=== PATIENT | male | born 1940 | race Caucasian/White ===

== ENCOUNTER → 2016-05-11 | Outpatient (REF) | payer MEDICARE, BC | LOC: M LAB REF 16:29 | DX: D51.9 Vitamin B12 deficiency anemia, unspecified (principal) ==

== ENCOUNTER → 2016-10-31 | Outpatient (CLI) | payer MEDICARE, BC ==
[~2016-10-31] MED LIST: B121000T PO; CYCL10TA; IBUP80TA PO; LANTINJ4; LOSA25TA8; NITR0.4S14 SL; PERC5TAB12 PO; PRAV40TA2; PRED20TA
--- NOTE | 2016-11-01 13:17 | REP ---
MRI study of the brain without contrast: History: Migraines. Neck pain. Back pain. Comparison CT study is from October 29, 2007. Technique: Axial and sagittal imaging planes are utilized for T1 and T2-weighted scans. Sequences include spin-echo, fast spin echo, FLAIR, and diffusion weighted sequences. MRI findings: No bony calvarial abnormality is seen. Craniocervical junction and upper cervical cord are normal in appearance. No intraorbital abnormality is seen. There is no MR evidence of significant paranasal sinus disease. There is no evidence of intracranial hemorrhage. Mild generalized volume loss is seen. Diffusion weighted scan show no evidence of acute ischemia or other cause of restricted diffusion. There is no evidence of intracranial mass, infarction, extra-axial fluid collection or midline shift. Minimal small vessel changes are present. Impression: No acute intracranial lesion. Generalized mild volume loss and minimal small vessel changes. Signed by Matty Jaramillo MD 11/01/2016 10:09 A
--- NOTE | 2016-11-01 13:17 | REP ---
MRI cervical spine without contrast: History: Migraines. Neck pain. Back pain. Comparison radiographs of the cervical spine are from October 29, 2007. Technique: Sagittal and axial T1 and T2-weighted scans are acquired in the usual fashion with and without fat saturation. Sequences include spin echo, turbo spin-echo, and STIR imaging sequences. MRI findings: The patient is status post ventral discectomy and fusion plating across the C6-7 disc space. 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 There is slight straightening. There is evidence of mild degenerative disc disease at C2-3, C3-4, C4-5, C5-6 and C7-T1. There is diffuse congenital central canal stenosis effacing the ventral and dorsal subarachnoid space mild in degree throughout the cervical spine. At C2-3, axial and sagittal images demonstrate mild diffuse disc bulging. There is left-sided uncovertebral spurring producing neural foraminal narrowing. At C3-4, in addition to mild developmental central canal stenosis, there is a broad-based central disc protrusion with associated discogenic spurring flattening the ventral margin of the cord. There is bilateral mild uncovertebral spurring. At C4-5, there is mild diffuse disc bulging. No other significant finding apart from developmentally small canal. At C5-6, there is a small central disc protrusion indenting the ventral margin of the cord centrally. Mild congenital central canal narrowing. At C6-7, there is evidence of surgical fusion. No recurrent or residual disc protrusion is seen. At C7-T1, there is no evidence of disc protrusion. Impression: 1. Status post C6-7 fusion. 2. 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 3. Central disc protrusions C3-4 and C5-6.4. Diffuse mild congenital central canal stenosis. Signed by Matty Jaramillo MD 11/01/2016 10:09 A
--- NOTE | 2016-11-01 13:17 | REP ---
MRI LUMBAR SPINE WITHOUT CONTRAST: HISTORY: Neck pain. Migraine. Back pain. Comparison is made with CT images from February 23, 2011. TECHNIQUE: Sagittal and axial T1 and T2-weighted scans are acquired in the usual fashion with and without fat saturation. Sequences include spin echo, turbo spin echo, and STIR imaging sequences. MRI FINDINGS: Lumbar vertebral body heights are preserved. Alignment is normal. There is no evidence of spondylolysis or spondylolisthesis. Normal caliber aorta. No extra vertebral abnormality is appreciated. Conus medullaris is normal in position and appearance at L1. There is a small benign hemangioma centrally in the L1 vertebral body. Axial and sagittal images at the L1-2 level show anterior discogenic spurring. No central canal stenosis is seen. Mild facet hypertrophy is noted. No disc herniation is seen. At L2-3 there is mild facet hypertrophy. No other abnormality. At L3-L4, there is diffuse disc bulging. Bilateral facet hypertrophy and some ligamentum flavum hypertrophy is seen. Canal size is borderline. Neural foramina are felt to be adequate. At L4-5, there is mild diffuse disc bulging. Ligamentum flavum and facet hypertrophy are seen along with developmentally short pedicles which combine to produce mild central canal stenosis at L4-5. The mid sagittal AP dimension of the thecal sac at this level is 10 mm. At L5-S1, there is broad central disc bulging effacing the ventral epidural fat but not compressing the thecal sac. Mild to moderate facet hypertrophy is seen. Neural foramina appear adequate. IMPRESSION: Some degenerative spondylosis changes. 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 Signed by Matty Jaramillo MD 11/01/2016 10:09 A
== END ==
LOC: M RAD 15:35
PROVIDERS: ATTEND Psychiatry & Neurology Neurology
DX: M54.5 Low back pain (principal); M54.2 Cervicalgia

== ENCOUNTER 2016-12-31 10:42 | Emergency (ER) | payer MEDICARE, BC ==
[~2016-12-31] VITALS: Ht 170.2 cm; Wt 75.9 kg
[2016-12-31] MEDS ORDERED: B121000T PO (11:04)
[2016-12-31] MEDS ORDERED: NITR0.4S14 SL (11:04)
[2016-12-31] MEDS ORDERED: CYCL10TA (11:04)
[2016-12-31] MEDS ORDERED: LOSA25TA8 (11:04)
[2016-12-31] MEDS ORDERED: PRAV40TA2 (11:04)
[2016-12-31] MEDS ORDERED: LANTINJ4 (11:04)
[2016-12-31] MEDS ORDERED: PRED20TA (11:04)
[2016-12-31] MEDS ORDERED: KETOROLAC 60 MG/2 ML VIAL (J1885) IM ONE (12:30)
--- NOTE | 2016-12-31 13:07 | REP ---
LUMBOSACRAL SPINE: Five views of lumbosacral spine performed. There is no compression fracture or malalignment. There is normal lumbar lordosis. There is mild to moderate spurring diffusely. There is diffuse sclerosis at the posterior facet joints. Posterior elements are intact. IMPRESSION: Diffuse degenerative changes. No fracture or dislocation. Signed by Selvin Knight MD 01/01/2017 07:53 P
[2016-12-31] MEDS ORDERED: IBUP80TA PO (13:27)
[2016-12-31] MEDS ORDERED: PERC5TAB12 PO (13:27)
[2016-12-31] MEDS ORDERED: PERCOCET 5MG/325MG TAB PO ONE (13:30)
[2016-12-31 13:37] VITALS: BP 142/78
== END 2016-12-31 13:40 | disposition home or self-care (01) ==
LOC: M ED 10:42
DX: M54.5 Low back pain (principal); E11.9 Type 2 diabetes mellitus without complications; I25.10 Atherosclerotic heart disease of native coronary artery without angina pectoris; I25.2 Old myocardial infarction; E78.5 Hyperlipidemia, unspecified; Z96.659 Presence of unspecified artificial knee joint; Z96.621 Presence of right artificial elbow joint; Z79.4 Long term (current) use of insulin; Z79.899 Other long term (current) drug therapy
CPT/HCPCS: 72110; 96372; 99282; J1885

== ENCOUNTER → 2017-09-17 | Outpatient (CLI) | payer MEDICARE, BC ==
[2017-09-17 10:34] LABS: HEMATOCRIT 39.3 % (42.0-52.0); HEMOGLOBIN 13.5 g/dl (13.5-17.5); MEAN CORPUSCULAR HEMOGLOBIN 30.9 pg (27.0-33.0); MEAN CORPUSCULAR HGB CONC 34.4 g/dl (32.0-36.5); MEAN CORPUSCULAR VOLUME 89.9 fl (80.0-96.0); PLATELET COUNT, AUTOMATED 204 10^3/uL (150-450); RED BLOOD COUNT 4.37 10^6/uL (4.30-6.10); RED CELL DISTRIBUTION WIDTH 12.2 % (11.5-14.5); WHITE BLOOD COUNT 8.5 10^3/uL (4.0-10.0)
[2017-09-17 10:57] LABS: ERYTHROCYTE SEDIMENTATION RATE 12 mm/hr (0-20)
[2017-09-17 11:19] LABS: INR 1.06; PROTHROMBIN TIME 13.9 SECONDS (12.1-14.4)
[2017-09-17 11:20] LABS: ALBUMIN/GLOBULIN RATIO 1.43 (1.00-1.93); ALKALINE PHOSPHATASE 97 U/L (45-117); ALT/SGPT 22 U/L (12-78); ANION GAP 10 MEQ/L (8-16); AST/SGOT 24 U/L (7-37); BLOOD UREA NITROGEN 28 MG/DL (7-18); CARBON DIOXIDE LEVEL 25 MEQ/L (21-32); CHLORIDE LEVEL 108 MEQ/L (98-107); CREATININE FOR GFR 1.72 MG/DL (0.70-1.30); GLOMERULAR FILTRATION RATE 41.6 (>42); GLUCOSE, FASTING 136 MG/DL (70-100); SODIUM LEVEL 143 MEQ/L (136-145); TOTAL PROTEIN 6.8 GM/DL (6.4-8.2)
== END ==
LOC: M ADMPAT 09:13
DX: M17.12 Unilateral primary osteoarthritis, left knee (principal); Z01.818 Encounter for other preprocedural examination
CPT/HCPCS: 71046

== ENCOUNTER 2017-10-07 09:26 | Inpatient (IN) | payer MEDICARE, BC ==
[2017-10-07] MEDS ORDERED: LIDOCAINE 1% MDV 20ML VIAL SQ (09:30)
[2017-10-07] MEDS: LR 1,000 ML IV ×3 (10:05→20:11)
[2017-10-07] MEDS: ACETAMINOPHEN 500 MG TAB PO (10:10)
[2017-10-07 10:22] LABS: GLUCOSE, FASTING 153 MG/DL (70-100)
[2017-10-07] MEDS ORDERED: fentaNYL 100 MCG/2 ML INJECTION (J3010) As Ordered (11:33)
[2017-10-07] MEDS ORDERED: MIDAZOLAM INJ 2 MG/2 ML VIAL (J2250) As Ordered (11:33)
[2017-10-07] MEDS: MIDAZOLAM INJ 2 MG/2 ML VIAL (J2250) IV ×2 (12:14→13:22)
[2017-10-07] MEDS: fentaNYL 100 MCG/2 ML INJECTION (J3010) IV ×4 (12:15→13:21)
[2017-10-07] MEDS ORDERED: PROPOFOL 200 MG/20 ML VIAL As Ordered (13:15)
[2017-10-07] MEDS ORDERED: ePHEDrine SULFATE 25 MG/5 ML(5MG/ML) SYRINGE As Ordered (13:56)
[2017-10-07] MEDS: TRANEXAMIC ACID 100 MG/ML 10ML VIAL As Ordered (14:05)
[2017-10-07] MEDS: EPINEPHrine INJ 1 MG/ML 1ML AMP As Ordered (14:05)
[2017-10-07] MEDS: BUPIVACAINE HCL 0.25% 10 ML VIAL As Ordered (14:07)
[2017-10-07] MEDS: ceFAZolin 1GM INJ (J0690 PER 500MG) As Ordered (14:07)
[2017-10-07] MEDS: BUPIVACAINE LIPOSOME/PF 1.3% 20 ML VIAL (13.3MG/ML)(EXPAREL) As Ordered (14:07)
[2017-10-07] MEDS ORDERED: dexameTHASONE 10 MG/1 ML VIAL PRES.FREE (J1100) (14:48)
[2017-10-07] MEDS ORDERED: LIDOCAINE 1% MDV 20ML VIAL (14:48)
[2017-10-07] MEDS ORDERED: ROPIvacaine 0.5% 30 ML INJECTION (J2795 PER 1MG) (14:48)
[2017-10-07] MEDS ORDERED: MORPHINE 1MG/ML IN 0.9% NACL 100ML IV BAG As Ordered (15:17)
[2017-10-07 15:26] LABS: BEDSIDE GLUCOSE 123 MG/DL (83-110)
[2017-10-07] MEDS: MORPHINE 1MG/ML IN 0.9% NACL 100ML IV BAG IV (15:30)
[2017-10-07] MEDS ORDERED: NALBUPHINE HCL 10 MG/ML AMP (J2300) IV (15:30)
[2017-10-07] MEDS ORDERED: diphenhydrAMINE INJ 50MG/ML VIAL (J1200) IV (15:30)
[2017-10-07] MEDS ORDERED: EPIDURAL/PCA KEYS XX (15:30)
[2017-10-07] MEDS ORDERED: NALOXONE INJ 0.4 MG/1 ML VIAL (J2310) IV (15:30)
[2017-10-07] MEDS ORDERED: FLEET ENEMA PR (15:30)
[2017-10-07] MEDS ORDERED: ONDANSETRON 4MG/2ML VIAL (J2405) IV ×2 (15:30)
[2017-10-07] MEDS ORDERED: ACETAMINOPHEN TAB 650MG DOSE (2X325MG) PO (15:30)
[2017-10-07] MEDS ORDERED: fentaNYL 100 MCG/2 ML INJECTION (J3010) IV (15:30)
[2017-10-07] MEDS ORDERED: MORPHINE 10 MG/ML 1ML VIAL (J2270) IV (15:30)
[2017-10-07] MEDS ORDERED: GLUCAGON FOR INJ 1 MG VIAL (J1610) SC (17:15)
[2017-10-07] MEDS ORDERED: GLUCOSE 4 GM CHEW TABLET PO (17:15)
[2017-10-07] MEDS ORDERED: NITROGLYCERIN 0.4 MG SUBL TABLET SL (17:15)
[2017-10-07] MEDS ORDERED: DEXTROSE 50% 50 ML SYRINGE IV (17:15)
[2017-10-07] MEDS ORDERED: PILL CRUSHER/CUTTER 1 EACH XX (17:30)
[2017-10-07] MEDS: HumaLOG INSULIN (NovoLOG) PER UNIT SC ×2 (17:30→21:00)
[2017-10-07] MEDS: EZETIMIBE 10 MG TAB (ZETIA) PO (20:11)
[2017-10-07 22:22] LABS: BEDSIDE GLUCOSE 213 MG/DL (83-110)
[2017-10-08] MEDS: LR 1,000 ML IV (04:15)
[2017-10-08] MEDS ORDERED: PERCOCET 5MG/325MG TAB PO (06:45)
[2017-10-08 07:02] LABS: HEMATOCRIT 36.6 % (42.0-52.0); HEMOGLOBIN 12.3 g/dl (13.5-17.5); MEAN CORPUSCULAR HEMOGLOBIN 30.5 pg (27.0-33.0); MEAN CORPUSCULAR HGB CONC 33.6 g/dl (32.0-36.5); MEAN CORPUSCULAR VOLUME 90.8 fl (80.0-96.0); PLATELET COUNT, AUTOMATED 180 10^3/uL (150-450); RED BLOOD COUNT 4.03 10^6/uL (4.30-6.10); WHITE BLOOD COUNT 16.5 10^3/uL (4.0-10.0)
[2017-10-08 07:22] LABS: ESTIMATED AVERAGE GLUCOSE 171 MG/DL (60-110); HEMOGLOBIN A1c 7.6 %
[2017-10-08 07:36] LABS: ANION GAP 9 MEQ/L (8-16); BLOOD UREA NITROGEN 31 MG/DL (7-18); CALCIUM LEVEL 8.5 MG/DL (8.8-10.2); CARBON DIOXIDE LEVEL 26 MEQ/L (21-32); CHLORIDE LEVEL 107 MEQ/L (98-107); CHOLESTEROL LEVEL 101 MG/DL (<200); CHOLESTEROL RISK RATIO 3.258 (<5); CREATININE FOR GFR 1.87 MG/DL (0.70-1.30); GLOMERULAR FILTRATION RATE 37.8 (>42); GLUCOSE, FASTING 244 MG/DL (70-100); HDL CHOLESTEROL 31 MG/DL (>40); LDL CHOLESTEROL 48.4 MG/DL (<100); NON-HDL-C 70 MG/DL; POTASSIUM SERUM 4.6 MEQ/L (3.5-5.1); SODIUM LEVEL 142 MEQ/L (136-145); TRIGLYCERIDES LEVEL 108 MG/DL (<150)
[2017-10-08] MEDS: HumaLOG INSULIN (NovoLOG) PER UNIT SC ×4 (08:58→20:01)
[2017-10-08] MEDS: MIRALAX *UNIT DOSE* 17GM PACKET PO (08:59)
[2017-10-08] MEDS: MOM 30ML SUSPENSION UDC PO (08:59)
[2017-10-08] MEDS: LEVEMIR (INSULIN DETEMIR) 1 UNITS/0.01ML SC (08:59)
[2017-10-08] MEDS: PRAVASTATIN 20 MG TAB PO (08:59)
[2017-10-08] MEDS: LOSARTAN 25 MG TAB PO (09:00)
[2017-10-08] MEDS: PERCOCET 5MG/325MG TAB PO ×3 (09:01→21:03)
[2017-10-08] MEDS: EZETIMIBE 10 MG TAB (ZETIA) PO (09:01)
[2017-10-08] MEDS: SENOKOT S TAB PO ×2 (09:01→21:03)
[2017-10-08] MEDS: ASPIRIN 81 MG ENTERIC TAB PO (09:01)
[2017-10-08 11:42] LABS: BEDSIDE GLUCOSE 176 MG/DL (83-110)
[2017-10-08 16:36] LABS: BEDSIDE GLUCOSE 98 MG/DL (83-110)
[2017-10-08] MEDS: RIVAROXABAN 10 MG TAB (XARELTO) PO (17:05)
[2017-10-08 19:35] LABS: BEDSIDE GLUCOSE 176 MG/DL (83-110)
[2017-10-09] MEDS: PERCOCET 5MG/325MG TAB PO ×4 (01:03→21:16)
[2017-10-09] MEDS: ONDANSETRON 4 MG TAB (S0181) PO (06:22)
[2017-10-09 06:55] LABS: HEMOGLOBIN 12.3 g/dl (13.5-17.5); MEAN CORPUSCULAR HEMOGLOBIN 30.7 pg (27.0-33.0); MEAN CORPUSCULAR HGB CONC 33.2 g/dl (32.0-36.5); MEAN CORPUSCULAR VOLUME 92.3 fl (80.0-96.0); PLATELET COUNT, AUTOMATED 182 10^3/uL (150-450); RED BLOOD COUNT 4.01 10^6/uL (4.30-6.10); RED CELL DISTRIBUTION WIDTH 12.4 % (11.5-14.5); WHITE BLOOD COUNT 12.2 10^3/uL (4.0-10.0)
[2017-10-09 07:14] LABS: ANION GAP 9 MEQ/L (8-16); BLOOD UREA NITROGEN 26 MG/DL (7-18); CALCIUM LEVEL 8.5 MG/DL (8.8-10.2); CARBON DIOXIDE LEVEL 26 MEQ/L (21-32); CHLORIDE LEVEL 104 MEQ/L (98-107); CREATININE FOR GFR 1.65 MG/DL (0.70-1.30); GLOMERULAR FILTRATION RATE 43.6 (>42); GLUCOSE, FASTING 186 MG/DL (70-100); SODIUM LEVEL 139 MEQ/L (136-145)
[2017-10-09] MEDS: HumaLOG INSULIN (NovoLOG) PER UNIT SC ×4 (07:30→21:00)
[2017-10-09] MEDS: LEVEMIR (INSULIN DETEMIR) 1 UNITS/0.01ML SC (08:13)
[2017-10-09] MEDS: LOSARTAN 25 MG TAB PO (08:14)
[2017-10-09] MEDS: ASPIRIN 81 MG ENTERIC TAB PO (08:14)
[2017-10-09] MEDS: SENOKOT S TAB PO ×2 (08:14→21:15)
[2017-10-09] MEDS: MOM 30ML SUSPENSION UDC PO (08:14)
[2017-10-09] MEDS: PRAVASTATIN 20 MG TAB PO (08:14)
[2017-10-09] MEDS: MIRALAX *UNIT DOSE* 17GM PACKET PO (08:14)
[2017-10-09] MEDS: EZETIMIBE 10 MG TAB (ZETIA) PO (08:15)
[2017-10-09 11:47] LABS: BEDSIDE GLUCOSE 185 MG/DL (83-110)
[2017-10-09 16:25] LABS: BEDSIDE GLUCOSE 205 MG/DL (83-110)
[2017-10-09] MEDS: RIVAROXABAN 10 MG TAB (XARELTO) PO (17:04)
[2017-10-09 19:56] LABS: BEDSIDE GLUCOSE 146 MG/DL (83-110)
[2017-10-10] MEDS: PERCOCET 5MG/325MG TAB PO ×2 (04:25→09:03)
[2017-10-10 06:51] LABS: HEMATOCRIT 35.7 % (42.0-52.0); HEMOGLOBIN 11.6 g/dl (13.5-17.5); MEAN CORPUSCULAR HEMOGLOBIN 30.6 pg (27.0-33.0); MEAN CORPUSCULAR HGB CONC 32.5 g/dl (32.0-36.5); MEAN CORPUSCULAR VOLUME 94.2 fl (80.0-96.0); PLATELET COUNT, AUTOMATED 169 10^3/uL (150-450); RED BLOOD COUNT 3.79 10^6/uL (4.30-6.10); RED CELL DISTRIBUTION WIDTH 12.4 % (11.5-14.5); WHITE BLOOD COUNT 11.1 10^3/uL (4.0-10.0)
[2017-10-10 07:09] LABS: ANION GAP 8 MEQ/L (8-16); BLOOD UREA NITROGEN 23 MG/DL (7-18); CALCIUM LEVEL 8.4 MG/DL (8.8-10.2); CARBON DIOXIDE LEVEL 29 MEQ/L (21-32); CHLORIDE LEVEL 103 MEQ/L (98-107); CREATININE FOR GFR 1.54 MG/DL (0.70-1.30); GLOMERULAR FILTRATION RATE 47.2 (>42); GLUCOSE, FASTING 116 MG/DL (70-100); POTASSIUM SERUM 4.4 MEQ/L (3.5-5.1); SODIUM LEVEL 140 MEQ/L (136-145)
[2017-10-10 07:55] LABS: BEDSIDE GLUCOSE 125 MG/DL (83-110)
[2017-10-10] MEDS: HumaLOG INSULIN (NovoLOG) PER UNIT SC (08:00)
[2017-10-10] MEDS: MOM 30ML SUSPENSION UDC PO (08:52)
[2017-10-10] MEDS: PRAVASTATIN 20 MG TAB PO (08:52)
[2017-10-10] MEDS: MIRALAX *UNIT DOSE* 17GM PACKET PO (08:52)
[2017-10-10] MEDS: LOSARTAN 25 MG TAB PO (08:53)
[2017-10-10] MEDS: SENOKOT S TAB PO (08:53)
[2017-10-10] MEDS: EZETIMIBE 10 MG TAB (ZETIA) PO (08:53)
[2017-10-10] MEDS: ASPIRIN 81 MG ENTERIC TAB PO (08:53)
[2017-10-10] MEDS: LEVEMIR (INSULIN DETEMIR) 1 UNITS/0.01ML SC (08:59)
[2017-10-10 11:33] LABS: BEDSIDE GLUCOSE 170 MG/DL (83-110)
== END 2017-10-10 12:30 | disposition home or self-care (01) | DRG 470 ==
LOC: M OR 09:26 → M MS5PR 17:18
PROVIDERS: Orthopaedic Surgery
PROC: 0SRD0J9 Replacement of Left Knee Joint with Synthetic Substitute, Cemented, Open Approach (ICD-10-PCS; principal; 2017-10-07 12:45)
DX: M17.12 Unilateral primary osteoarthritis, left knee (principal); E11.9 Type 2 diabetes mellitus without complications; Z79.82 Long term (current) use of aspirin; Z79.899 Other long term (current) drug therapy; Z79.4 Long term (current) use of insulin; Z96.651 Presence of right artificial knee joint; I10 Essential (primary) hypertension; I25.10 Atherosclerotic heart disease of native coronary artery without angina pectoris; I25.2 Old myocardial infarction

== ENCOUNTER 2017-10-14 13:57 | Outpatient (RCR) | payer MEDICARE, BC | END 2017-10-15 | disposition home or self-care (01) | LOC: M PT 13:57 | DX: Z47.89 Encounter for other orthopedic aftercare (principal); Z96.651 Presence of right artificial knee joint | CPT/HCPCS: 97162 ==

== ENCOUNTER → 2017-10-14 | Outpatient (CLI) | payer MEDICARE, BC | LOC: M RAD 16:36 | DX: Z01.818 Encounter for other preprocedural examination (principal); M79.89 Other specified soft tissue disorders | CPT/HCPCS: 93971 ==

== ENCOUNTER 2017-10-16 14:28 | Outpatient (RCR) | payer MEDICARE, BC | END 2017-11-15 | LOC: M PT 11-01 14:15 | DX: Z47.89 Encounter for other orthopedic aftercare (principal); Z96.652 Presence of left artificial knee joint | CPT/HCPCS: 97110 ==

== ENCOUNTER 2017-10-17 12:29 | Emergency (ER) | payer MEDICARE, BC ==
[2017-10-17] MEDS: ONDANSETRON 4MG/2ML VIAL (J2405) IV (13:05)
[2017-10-17] MEDS: ASPIRIN 81 MG CHEW TABLET PO (13:05)
[2017-10-17] MEDS: NS 1,000 ML IV (13:05)
[2017-10-17] MEDS: MORPHINE 2 MG/ML 1ML SYRINGE (J2270) IV ×2 (13:06→13:27)
[2017-10-17] MEDS: CLOPIDOGREL 300 MG TAB (PLAVIX) PO (13:11)
[2017-10-17 13:14] LABS: BASO # 0.1 10^3/uL (0.0-0.2); BASO % 0.4 % (0.0-1.0); EOS % 0.3 % (0.0-3.0); HEMATOCRIT 34.8 % (42.0-52.0); HEMOGLOBIN 11.8 g/dl (13.5-17.5); IMMATURE GRANULOCYTE % 0.7 % (0-3.0); LYMPH % 6.9 % (24.0-44.0); MEAN CORPUSCULAR HEMOGLOBIN 31.1 pg (27.0-33.0); MEAN CORPUSCULAR HGB CONC 33.9 g/dl (32.0-36.5); MEAN CORPUSCULAR VOLUME 91.8 fl (80.0-96.0); MONO # 0.8 10^3/uL (0.0-0.8); MONO % 5.3 % (0.0-5.0); NEUTROPHILS # 12.3 10^3/uL (1.8-7.7); NEUTROPHILS % 86.4 % (36.0-66.0); PLATELET COUNT, AUTOMATED 429 10^3/uL (150-450); RED BLOOD COUNT 3.79 10^6/uL (4.30-6.10); RED CELL DISTRIBUTION WIDTH 12.1 % (11.5-14.5); WHITE BLOOD COUNT 14.3 10^3/uL (4.0-10.0)
[2017-10-17] MEDS: HEPARIN SOD (PORCINE) 5000 UNITS/ML VIAL IV (13:17)
[2017-10-17] MEDS: HEPARIN DRIP 25,000 UNITS in APPROPRIATE DILUENT 1 EA IV (13:18)
[2017-10-17 13:29] LABS: PROTHROMBIN TIME 17.4 SECONDS (12.1-14.4)
[2017-10-17 13:30] LABS: PARTIAL THROMBOPLASTIN TIME 28.5 SECONDS (25.4-37.6)
[2017-10-17 13:38] LABS: ANION GAP 17 MEQ/L (8-16); BLOOD UREA NITROGEN 35 MG/DL (7-18); CALCIUM LEVEL 9.4 MG/DL (8.8-10.2); CARBON DIOXIDE LEVEL 20 MEQ/L (21-32); CHLORIDE LEVEL 100 MEQ/L (98-107); CPK CREATINE PHOSPHOKINASE 67 U/L (39-308); CREATININE FOR GFR 1.75 MG/DL (0.70-1.30); GLOMERULAR FILTRATION RATE 40.8 (>42); GLUCOSE, FASTING 217 MG/DL (70-100); POTASSIUM SERUM 4.8 MEQ/L (3.5-5.1); SODIUM LEVEL 137 MEQ/L (136-145); TROPONIN I < 0.02 NG/ML (< 0.10)
[2017-10-17 13:39] LABS: CK-MB VALUE MASS 1.3 NG/ML (<3.6); MB/CK RELATIVE INDEX 1.94 (< OR =4)
== END 2017-10-17 13:40 | disposition short-term general hospital (02) ==
LOC: M ED 12:29
DX: I21.19 ST elevation (STEMI) myocardial infarction involving other coronary artery of inferior wall (principal); I20.9 Angina pectoris, unspecified; I51.9 Heart disease, unspecified; I10 Essential (primary) hypertension; E78.5 Hyperlipidemia, unspecified; Z95.5 Presence of coronary angioplasty implant and graft; Z79.82 Long term (current) use of aspirin; Z79.4 Long term (current) use of insulin; Z79.899 Other long term (current) drug therapy
CPT/HCPCS: J2405

== ENCOUNTER 2017-10-26 01:18 | Emergency (ER) | payer MEDICARE, BC ==
[2017-10-26] MEDS: NS 500 ML IV ×2 (02:00→07:28)
[2017-10-26] MEDS: MORPHINE 4 MG/ML 1ML VIAL/SYRINGE (J2270) IV (02:34)
[2017-10-26] MEDS: METOCLOPRAMIDE INJ 10MG/2ML VIAL (J2765) IV (02:34)
[2017-10-26 03:08] LABS: BASO % 0.3 % (0.0-1.0); EOS # 0.1 10^3/uL (0.0-0.50); EOS % 0.8 % (0.0-3.0); HEMATOCRIT 32.2 % (42.0-52.0); HEMOGLOBIN 10.6 g/dl (13.5-17.5); IMMATURE GRANULOCYTE % 0.5 % (0-3.0); LYMPH # 0.9 10^3/uL (1.5-4.5); LYMPH % 10.3 % (24.0-44.0); MEAN CORPUSCULAR HEMOGLOBIN 30.9 pg (27.0-33.0); MEAN CORPUSCULAR HGB CONC 32.9 g/dl (32.0-36.5); MEAN CORPUSCULAR VOLUME 93.9 fl (80.0-96.0); MONO # 0.7 10^3/uL (0.0-0.8); MONO % 7.4 % (0.0-5.0); NEUTROPHILS # 7.1 10^3/uL (1.8-7.7); NEUTROPHILS % 80.7 % (36.0-66.0); PLATELET COUNT, AUTOMATED 354 10^3/uL (150-450); RED BLOOD COUNT 3.43 10^6/uL (4.30-6.10); WHITE BLOOD COUNT 8.8 10^3/uL (4.0-10.0)
[2017-10-26 03:22] LABS: INR 1.44; PROTHROMBIN TIME 17.8 SECONDS (12.1-14.4)
[2017-10-26 03:23] LABS: PARTIAL THROMBOPLASTIN TIME 29.3 SECONDS (25.4-37.6)
[2017-10-26 03:30] LABS: ALBUMIN 3.4 GM/DL (3.2-5.2); ALBUMIN/GLOBULIN RATIO 1.36 (1.00-1.93); ALKALINE PHOSPHATASE 96 U/L (45-117); ALT/SGPT 26 U/L (12-78); ANION GAP 9 MEQ/L (8-16); AST/SGOT 18 U/L (7-37); BILIRUBIN,DIRECT 0.4 MG/DL (0.0-0.2); BLOOD UREA NITROGEN 27 MG/DL (7-18); CALCIUM LEVEL 8.4 MG/DL (8.8-10.2); CARBON DIOXIDE LEVEL 24 MEQ/L (21-32); CHLORIDE LEVEL 105 MEQ/L (98-107); CREATININE FOR GFR 1.63 MG/DL (0.70-1.30); GLOMERULAR FILTRATION RATE 44.2 (>42); GLUCOSE, FASTING 178 MG/DL (70-100); LIPASE 188 U/L (73-393); POTASSIUM SERUM 4.3 MEQ/L (3.5-5.1); SODIUM LEVEL 138 MEQ/L (136-145); TOTAL PROTEIN 5.9 GM/DL (6.4-8.2)
[2017-10-26 03:32] LABS: LACTIC ACID SEPSIS PROTOCOL 1.8 MMOL/L (0.4-2.0)
[2017-10-26] MEDS: MORPHINE 10 MG/ML 1ML VIAL (J2270) IV (04:58)
[2017-10-26 08:40] LABS: APPEARANCE, URINE CLEAR (CLEAR); BACTERIA, URINE AUTO NEGATIVE (NEGATIVE); BILIRUBIN, URINE AUTO NEGATIVE (NEGATIVE); BLOOD, URINE BLOOD NEGATIVE (NEGATIVE); COLOR, URINE YELLOW (YELLOW); GLUCOSE, URINE (UA) AUTO 1+ mg/dL (NEGATIVE); KETONE, URINE AUTO TRACE mg/dL (NEGATIVE); LEUKOCYTE ESTERASE, URINE AUTO NEGATIVE (NEGATIVE); NITRITE, URINE AUTO NEGATIVE (NEGATIVE); PROTEIN, URINE AUTO NEGATIVE (NEGATIVE); RBC, URINE AUTO 0 /HPF (0-3); SPECIFIC GRAVITY URINE AUTO 1.015 (1.002-1.035); SQUAMOUS EPITHELIAL CELL UR AU 0 /HPF (0-6); WBC, URINE AUTO 0 /HPF (0-3)
== END 2017-10-26 08:38 | disposition home or self-care (01) ==
LOC: M ED 01:18
DX: R10.9 Unspecified abdominal pain (principal); N20.0 Calculus of kidney; K57.90 Diverticulosis of intestine, part unspecified, without perforation or abscess without bleeding
CPT/HCPCS: J2270

== ENCOUNTER 2017-11-19 14:23 | Outpatient (RCR) | payer MEDICARE, BC | END 2017-12-15 | LOC: M PT 14:23 | DX: Z47.1 Aftercare following joint replacement surgery (principal); Z96.652 Presence of left artificial knee joint | CPT/HCPCS: 97110 ==

== ENCOUNTER 2017-12-18 14:21 | Outpatient (RCR) | payer MEDICARE, BC | END 2018-01-15 | LOC: M PT 14:21 | DX: Z47.1 Aftercare following joint replacement surgery (principal); Z96.652 Presence of left artificial knee joint | CPT/HCPCS: 97110 ==

== ENCOUNTER 2018-11-18 08:08 | Day surgery (SDC) | payer MEDICARE, BC ==
[~2018-11-18] VITALS: Ht 172.7 cm; Wt 75.5 kg
[~2018-11-18 08:08] MED LIST changes: +ASPI81TA26 PO; +ATOR40TA75 PO; +BISO5TAB9 PO; +CLOP75TA2 PO; -LANTINJ4; +LANTINJ4 SUBQ; +LOSA25TA14 PO; -LOSA25TA8; +MAPA500C PO; +NS 1,000 ML IV ONE; +PANT40TA3; -PRAV40TA2; +PRAV40TA2 PO; +TYLE500T78 PO; +XARE10TA PO
--- NOTE | 2018-11-18 08:54 | ROOR ---
Patient Name: Andrew Salcedo Procedure Date: 11/18/2018 8:36 AM Date of : 1940 Age: 78 Room: [facility] Gender: Male Note Status: Finalized Procedure: Total Colonoscopy to Cecum Indications: High risk colon cancer surveillance: Personal history of colonic polyps, Last colonoscopy: 2014 Providers: Gonsalo Clark MD Referring MD: ESTELA MCNAIR JR, MD Requesting Provider: Medicines: Monitored Anesthesia Care Complications: No immediate complications. Procedure: Pre-Anesthesia Assessment: - The heart rate, respiratory rate, oxygen saturations, blood pressure, adequacy of pulmonary ventilation, and response to care were monitored throughout the procedure. The Colonoscope was introduced through the anus and advanced to the cecum, identified by appendiceal orifice and ileocecal valve. The colonoscopy was performed without difficulty. The patient tolerated the procedure well. The quality of the bowel preparation was good. Findings: The perianal and digital rectal examinations were normal. Non-bleeding internal hemorrhoids were found during retroflexion. The hemorrhoids were small and Grade I (internal hemorrhoids that do not prolapse). Multiple small and large-mouthed diverticula were found in the recto-sigmoid colon, sigmoid colon and descending colon. The exam was otherwise without abnormality on direct and retroflexion views. Impression: - Non-bleeding internal hemorrhoids. - Diverticulosis in the recto-sigmoid colon, in the sigmoid colon and in the descending colon. - The examination was otherwise normal on direct and retroflexion views. - No specimens collected. - The exam was otherwise normal to the cecum. Recommendation: - Patient has a contact number available for emergencies. The signs and symptoms of potential delayed complications were discussed with the patient. Return to normal activities tomorrow. Written discharge instructions were provided to the patient. - High fiber diet. - Discharge patient to home. - Continue present medications. - Repeat colonoscopy for symptoms only. - Return to referring physician. - The findings and recommendations were discussed with the patient's family. Gonsalo Clark MD Gonsalo Clark MD 11/18/2018 8:53:54 AM Electronically signed by Gonsalo Clark MD Number of Addenda: 0 Note Initiated On: 11/18/2018 8:36 AM Estimated Blood Loss: Estimated blood loss: none.
[2018-11-18 09:18] VITALS: BP 121/59
[2018-11-18] MEDS ORDERED: LIDOCAINE 2% INJ 100 MG/5 ML SDV (FOR ANES.) As Ordered ONE (09:23)
[2018-11-18] MEDS ORDERED: PROPOFOL 200 MG/20 ML VIAL As Ordered ONE (09:23)
== END 2018-11-18 09:19 | disposition home or self-care (01) ==
LOC: M OPP 08:08
PROVIDERS: ATTEND Internal Medicine Gastroenterology
DX: Z12.11 Encounter for screening for malignant neoplasm of colon (principal); Z86.010 Personal history of colon polyps; K64.0 First degree hemorrhoids; K57.30 Diverticulosis of large intestine without perforation or abscess without bleeding; G47.30 Sleep apnea, unspecified; E11.9 Type 2 diabetes mellitus without complications; Z79.82 Long term (current) use of aspirin; Z79.899 Other long term (current) drug therapy; Z95.5 Presence of coronary angioplasty implant and graft

== ENCOUNTER → 2019-05-11 | Outpatient (REF) | payer MEDICARE, BC ==
[~2019-05-11] MED LIST changes: +BISO5TAB14 PO; -BISO5TAB9 PO; -NS 1,000 ML IV ONE
[2019-05-12 10:17] LABS: FOLATE 5.5 NG/ML
== END ==
LOC: M LAB REF 16:44
PROVIDERS: ATTEND Internal Medicine
DX: R41.3 Other amnesia (principal)

== ENCOUNTER → 2019-08-18 | Outpatient (REF) | payer MEDICARE, BC ==
[~2019-08-18] MED LIST changes: +CYCL-707; -CYCL10TA
[2019-08-18 19:13] LABS: APPEARANCE, URINE CLEAR (CLEAR); BACTERIA, URINE AUTO NEGATIVE (NEGATIVE); BILIRUBIN, URINE AUTO NEGATIVE (NEGATIVE); BLOOD, URINE BLOOD NEGATIVE (NEGATIVE); COLOR, URINE YELLOW (YELLOW); GLUCOSE, URINE (UA) AUTO NEGATIVE (NEGATIVE); KETONE, URINE AUTO NEGATIVE (NEGATIVE); LEUKOCYTE ESTERASE, URINE AUTO NEGATIVE (NEGATIVE); NITRITE, URINE AUTO NEGATIVE (NEGATIVE); PROTEIN, URINE AUTO NEGATIVE (NEGATIVE); RBC, URINE AUTO 1 /HPF (0-3); SPECIFIC GRAVITY URINE AUTO 1.017 (1.002-1.035); SQUAMOUS EPITHELIAL CELL UR AU 0 /HPF (0-6); UROBILINOGEN, URINE AUTO 0.2 mg/dL (0.0-2.0); WBC, URINE AUTO 1 /HPF (0-3)
== END ==
LOC: M SMT 17:25
PROVIDERS: ATTEND Nurse Practitioner Family
DX: N40.1 Benign prostatic hyperplasia with lower urinary tract symptoms (principal)
CPT/HCPCS: 51798; 81001; 87086; G0463

== ENCOUNTER → 2020-10-14 | Outpatient (CLI) | payer MEDICARE, BC ==
[~2020-10-14] MED LIST changes: +PANT40TA29; -PANT40TA3
--- NOTE | 2020-10-14 09:39 | REP ---
INDICATION: ELEVATED LFT'S. FINDINGS: Multiple ultrasonographic images of the liver show the hepatic parenchymal echo texture to appear echodense with a coarsened echo pattern.. There are no focal masses. There is no intrahepatic ductal dilatation. The common bile duct was not visualized. Images of the pancreatic region show no gross abnormality. The imaged portion of the right kidney showed no acute abnormality. IMPRESSION: Limited examination showing no evidence of an acute abnormality. Due to the echodensity of the hepatic parenchyma ultrasonic beam penetration was difficult.. Accredited by the [employer] in General Ultrasound. <Electronically signed by Silvio Dahl > 10/14/20 [id number]
== END ==
LOC: M RAD 08:23
PROVIDERS: ATTEND Internal Medicine
DX: R94.5 Abnormal results of liver function studies (principal)

== ENCOUNTER → 2021-10-03 | Outpatient (POV) | payer MEDICARE, BC ==
[~2021-10-03] VITALS: Ht 172.7 cm; Wt 63.6 kg
[~2021-10-03] MED LIST changes: +LOSA25TA13 PO; -LOSA25TA14 PO
[2021-10-03 11:10] VITALS: BP 158/78
== END ==
LOC: M IRPOV 11:05
PROVIDERS: ATTEND Radiology Diagnostic Radiology
DX: R10.32 Left lower quadrant pain (principal); R10.12 Left upper quadrant pain; G89.29 Other chronic pain; I25.10 Atherosclerotic heart disease of native coronary artery without angina pectoris; I25.2 Old myocardial infarction; I77.4 Celiac artery compression syndrome; R19.7 Diarrhea, unspecified; R63.4 Abnormal weight loss; Z79.899 Other long term (current) drug therapy; Z59.41 Food insecurity; Z95.5 Presence of coronary angioplasty implant and graft; Z95.828 Presence of other vascular implants and grafts

== ENCOUNTER → 2021-10-12 | Outpatient (CLI) | payer MEDICARE, BC ==
[~2021-10-12] MED LIST changes: +ISOVUE-370 76% 100ML VIAL As Ordered ONE
== END ==
LOC: M RAD 12:51
PROVIDERS: ATTEND Radiology Diagnostic Radiology
DX: K55.1 Chronic vascular disorders of intestine (principal)
CPT/HCPCS: 74174; Q9967

== ENCOUNTER → 2022-05-14 | Outpatient (CLI) | payer MEDICARE, BC ==
[~2022-05-14] MED LIST changes: -ISOVUE-370 76% 100ML VIAL As Ordered ONE
== END ==
LOC: M RAD 10:19
PROVIDERS: ATTEND Internal Medicine
DX: I73.9 Peripheral vascular disease, unspecified (principal); R01.1 Cardiac murmur, unspecified; I65.29 Occlusion and stenosis of unspecified carotid artery

== ENCOUNTER 2023-07-11 17:39 | Emergency (ER) | payer MEDICARE, BC ==
[~2023-07-11] VITALS: Ht 170.2 cm; Wt 73.8 kg
[2023-07-11 18:22] LABS: VENOUS HCO3 21.3 MMOL/L (23.0-27.0); VENOUS O2 SATURATION 63.5 % (60.0-80.0); VENOUS PARTIAL PRESSURE CO2 48.7 mmHg (38.0-50.0); VENOUS PARTIAL PRESSURE O2 36.1 mmHg (30.0-50.0); VENOUS PH 7.258 UNITS (7.330-7.430); VENOUS STANDARD HCO3 18.9 MMOL/L; VENOUS TOTAL CO2 22.8 MMOL/L (24.0-28.0)
[2023-07-11] MEDS: NS 500 ML IV ONE (18:28)
[2023-07-11 18:32] LABS: BASO # 0.1 10^3/uL (0.0-0.2); BASO % 0.7 % (0.0-1.0); EOS # 0.4 10^3/uL (0.0-0.5); EOS % 5.4 % (0.0-3.0); HEMATOCRIT 39.4 % (42.0-52.0); HEMOGLOBIN 13.1 g/dl (13.5-17.5); LYMPH # 1.4 10^3/uL (1.5-5.0); LYMPH % 18.6 % (24.0-44.0); MEAN CORPUSCULAR HEMOGLOBIN 30.5 pg (27.0-33.0); MEAN CORPUSCULAR HGB CONC 33.2 g/dl (32.0-36.5); MEAN CORPUSCULAR VOLUME 91.8 fl (80.0-96.0); MONO # 0.6 10^3/uL (0.0-0.8); MONO % 7.8 % (2.0-8.0); NEUTROPHILS % 67.1 % (36.0-66.0); PLATELET COUNT, AUTOMATED 171 10^3/uL (150-450); RED BLOOD COUNT 4.29 10^6/uL (4.30-6.10); WHITE BLOOD COUNT 7.5 10^3/uL (4.0-10.0)
[2023-07-11 18:33] LABS: ALBUMIN 3.8 G/DL (3.2-5.2); BILIRUBIN,DIRECT 0.3 MG/DL (<0.4); BILIRUBIN,TOTAL 0.6 MG/DL (0.3-1.2); CALCIUM LEVEL 9.2 MG/DL (8.3-10.6); CK-MB VALUE MASS 2.2 NG/ML (<3.6); CREATININE FOR GFR 1.69 MG/DL (0.70-1.30); GLOMERULAR FILTRATION RATE 41.8 (>35); MB/CK RELATIVE INDEX 2.58 (< OR =4); POTASSIUM SERUM 4.7 MMOL/L (3.5-5.1); TOTAL PROTEIN 6.3 G/DL (5.7-8.2)
[2023-07-11 18:35] LABS: THYROID STIMULATING HORMONE 5.3 uIU/ML (0.55-4.78)
[2023-07-11 18:36] LABS: FREE T4 1.01 NG/DL (0.89-1.76)
[2023-07-11 18:44] LABS: INR 1.06; PARTIAL THROMBOPLASTIN TIME 21.7 SECONDS (24.8-34.2); PROTHROMBIN TIME 13.5 SECONDS (12.5-14.5)
[2023-07-11] MEDS: bisoproloL fumarate 5 MG TAB PO ONE (19:16)
[2023-07-11 19:27] VITALS: TEMP 97.5
[2023-07-11 19:39] LABS: CK-MB VALUE MASS 1.9 NG/ML (<3.6)
[2023-07-11 19:40] LABS: MB/CK RELATIVE INDEX 2.46 (< OR =4)
[2023-07-11] MEDS ORDERED: BISO5TAB14 PO (19:53)
[2023-07-11 19:58] VITALS: O2SAT 99
[2023-07-11 20:01] VITALS: BP 130/58
== END 2023-07-11 20:26 | disposition home or self-care (01) ==
LOC: M ED 17:39
DX: I48.91 Unspecified atrial fibrillation (principal); I25.119 Atherosclerotic heart disease of native coronary artery with unspecified angina pectoris; E11.9 Type 2 diabetes mellitus without complications; I10 Essential (primary) hypertension; Z79.1 Long term (current) use of non-steroidal anti-inflammatories (NSAID); Z79.899 Other long term (current) drug therapy

== ENCOUNTER → 2023-07-24 | Outpatient (CLI) | payer MEDICARE, BC | LOC: M RAD 12:24 | PROVIDERS: ATTEND Internal Medicine | DX: N13.9 Obstructive and reflux uropathy, unspecified (principal); N18.9 Chronic kidney disease, unspecified ==

== ENCOUNTER → 2024-06-25 | Outpatient (CLI) | payer MEDICARE, BC ==
[2024-06-25 12:31] LABS: HEMATOCRIT 38.8 % (42.0-52.0); HEMOGLOBIN 12.3 g/dl (13.5-17.5); MEAN CORPUSCULAR HEMOGLOBIN 29.6 pg (27.0-33.0); MEAN CORPUSCULAR HGB CONC 31.7 g/dl (32.0-36.5); MEAN CORPUSCULAR VOLUME 93.3 fl (80.0-96.0); PLATELET COUNT, AUTOMATED 155 10^3/uL (150-450); RED BLOOD COUNT 4.16 10^6/uL (4.30-6.10); WHITE BLOOD COUNT 7.2 10^3/uL (4.0-10.0)
[2024-06-25 13:23] LABS: ALBUMIN 3.5 G/DL (3.2-5.2); BILIRUBIN,TOTAL 0.6 MG/DL (0.3-1.2); CHOLESTEROL RISK RATIO 2.65 (<5); CREATININE FOR GFR 1.54 MG/DL (0.70-1.30); LDL CHOLESTEROL 43.6 MG/DL (<100); POTASSIUM SERUM 4.8 MMOL/L (3.5-5.1); TOTAL PROTEIN 6.1 G/DL (5.7-8.2)
== END ==
LOC: M LAB 12:02
PROVIDERS: ATTEND Nurse Practitioner Acute Care
DX: I10 Essential (primary) hypertension (principal); I25.10 Atherosclerotic heart disease of native coronary artery without angina pectoris; E78.5 Hyperlipidemia, unspecified

== ENCOUNTER → 2024-12-17 | Outpatient (REF) | payer MEDICARE, BC ==
[~2024-12-17] MED LIST changes: -PRAV40TA2 PO; +PRAV40TA85 PO
[2024-12-17 14:50] LABS: IRON (FE) 97.0 UG/DL (65-175); PERCENT SATURATION 34.4 % (19.7-50.0)
[2024-12-17 14:54] LABS: PTH INTACT 45.8 PG/ML (18.5-88.0)
== END ==
LOC: M LAB REF 13:50
PROVIDERS: ATTEND Internal Medicine
DX: N18.31 Chronic kidney disease, stage 3a (principal)